=== PATIENT | male | born 1970 | race Caucasian/White ===

== ENCOUNTER → 2024-07-22 | Outpatient (CLI) | payer BC, SELFPAY ==
--- NOTE | 2024-07-22 08:40 | XR_ITS ---
Examination: PA lateral chest 2 views TECHNIQUE: Upright PA lateral chest 2 views Exam date and time: July 22, 2024 0847 hours Comparison October 25, 2021 INDICATIONS: Coughing beginning 2 days ago. FINDINGS: No significant cardiac enlargement Mild accentuation basilar bronchovascular markings No pulmonary edema or lobar pneumonia Mild osteopenia IMPRESSION: Mild basilar bronchitis pattern
== END | disposition home or self-care (01) ==
LOC: CDIM 08:23
PROVIDERS: PCP Internal Medicine; Referring Provider Internal Medicine; Visit Provider Internal Medicine
DX: R05.9 Cough, unspecified (principal)
CPT/HCPCS: 71046

== ENCOUNTER → 2024-09-05 | Outpatient (CLI) | payer BC, SELFPAY ==
[2024-09-05 08:56] LABS: Collection Type, Urine Clean Catch; Squamous Epithelial Cell,Urine 0 /hpf (0-5)
[2024-09-05 10:24] LABS: Bilirubin,Urine Negative (Negative); Blood,Urine Negative (Negative); Clarity,Urine Clear (Clear/Hazy); Color,Urine Lt-Yellow (Lt Yel-Yel); Glucose, Urine Negative (Negative); Ketones,Urine Negative (Negative); Leukocyte Esterase,Urine Negative (Negative); Nitrite,Urine Negative (Negative); PH,Urine 5.5 (5.0-7.0); Protein,Urine Negative (Neg - Trace); RBC,Urine 2 /hpf (0-3); Urobilinogen,Urine Negative mg/dL (0.0-1.0); WBC,Urine 1 /hpf (0-5)
[2024-09-05 11:26] LABS: Alanine Aminotransferase 27 U/L (10-49); Albumin, Serum 4.7 gm/dL (3.5-5.0); Albumin/Globulin Ratio 1.8 (1.2-2.2); Alkaline Phosphatase 64 U/L (46-116); Anion Gap 9 (7-16); Aspartate Amino Transferase 17 U/L (0-34); BUN/Creatinine Ratio 21 Ratio (12-20); Bilirubin,Total 1.5 mg/dL (0.3-1.2); Blood Urea Nitrogen 31 mg/dL (9-23); Carbon Dioxide 27.5 mMol/L (20.0-31.0); Cardiac Risk Estimate 4.8 RATIO (4.0-6.7); Chloride 101 mMol/L (98-107); Cholesterol 212 mg/dL (132-200); Creatinine (Component) 1.5 mg/dL (0.6-1.3); Globulin 2.6 gm/dL (2.3-3.5); Glucose 95 mg/dL (74-106); HDL Cholesterol 44 mg/dL (40-60); LDL Cholesterol,Calculated 142 mg/dL (0-130); Osmolality,Calculated 280 (275-295); Potassium 4.9 mMol/L (3.4-5.1); Sodium 137 mMol/L (136-145); Thyroid Stimulating Hormone 1.79 uIU/mL (0.55-4.78); Total Protein 7.3 gm/dL (5.7-8.2); Triglycerides 128 mg/dL (30-150); eGFR 55 See Note
== END | disposition home or self-care (01) ==
PROVIDERS: PCP Internal Medicine; Referring Provider Internal Medicine; Visit Provider Internal Medicine
DX: I10 Essential (primary) hypertension (principal); E78.5 Hyperlipidemia, unspecified; N17.9 Acute kidney failure, unspecified
CPT/HCPCS: 36415; 80053; 80061; 81001; 84443

== ENCOUNTER → 2024-09-15 | Outpatient (CLI) | payer BC, SELFPAY ==
--- NOTE | 2024-09-15 14:30 | XR_ITS ---
Examination: Retroperitoneal ultrasound, complete Technique: Multiple high resolution grayscale images of the retroperitoneum obtained, including kidneys and bladder. Exam date and time:September 15, 2024 0440 hours INDICATIONS: Polycystic kidney disease diagnosis 15 years ago FINDINGS: Right kidney 14.2 cm renal cortex 2.9 cm Left kidney 15.1 cm renal cortex 2.7 cm Multiple bilateral renal cysts, the largest in the right kidney 3.2 cm, the largest in the left kidney 4.5 cm No hydronephrosis No bladder mass or bladder calculi Bladder prevoid volume 258 cc Prostate volume 26 cc no prostate nodules IMPRESSION: Polycystic kidney disease
== END | disposition home or self-care (01) ==
PROVIDERS: PCP Internal Medicine; Referring Provider Internal Medicine; Visit Provider Internal Medicine
DX: Q61.3 Polycystic kidney, unspecified (principal)
CPT/HCPCS: 76770

== ENCOUNTER → 2025-01-13 | Outpatient (CLI) | payer BC, SELFPAY ==
--- NOTE | 2025-01-13 13:29 | XR_ITS ---
Examination: Left elbow 2 views Technique one AP lateral left elbow 2 views Date and time: January 13, 2025 1342 hours INDICATIONS: Left elbow pain beginning one month ago. FINDINGS: Mild elbow osteoarthritis, minimal spurring of the coronary process of the ulna No fracture or dislocation 3 mm posterior bony olecranon spur IMPRESSION: Mild elbow osteoarthritis
== END | disposition home or self-care (01) ==
LOC: CDIM 13:23
PROVIDERS: PCP Internal Medicine; Referring Provider Orthopaedic Surgery; Visit Provider Orthopaedic Surgery
DX: M19.022 Primary osteoarthritis, left elbow (principal)
CPT/HCPCS: 73070